=== PATIENT | male | born 1980 | race American Indian/Alaskan Native ===

== ENCOUNTER 2021-08-31 21:27 | Emergency (ER) | payer SELFPAY ==
[2021-08-31 23:26] VITALS: BP 129/90
--- NOTE | 2021-08-31 23:41 | Emergency Department Report ---
ED General Adult HPI - General Chief complaint: Dental/Oral Stated complaint: ABCESS,TOOTH ACHE Source: patient Mode of arrival: Ambulatory Limitations: No Limitations - History of Present Illness Initial comments: Patient is a 40-year-old -Tongan male with past medical history of HIV presents to the ED with complaint of acute onset persistent left mandibular gingival pain and swelling due to painful premolar and molar toothache for the last 2 days. Patient states that he has previously had similar symptoms before and decided come to the ED for medication. Patient states that he is unable to eat or chew anything because of worsening pain in the left mandibular gingiva and tooth ache. Patient denies dizziness, syncope, sore throat, chest pain or shortness of breath, change in vision, nasal and sinus congestion, fever and chills, abdominal pain, nausea and vomiting. MD Complaint: dental pain, painful swollen gums -: Sudden Location: mouth Severity scale (0 -10): 8 Quality: aching, sharp, constant Consistency: constant Improves with: none Worsens with: eating Associated Symptoms: denies other symptoms. denies: confusion, chest pain, cough, diaphoresis, fever/chills, headaches, loss of appetite, malaise, nausea/vomiting, rash, seizure, shortness of breath, syncope, weakness Treatments Prior to Arrival: none - Related Data Previous Rx's Medication Instructions Recorded Last Taken Type Clindamycin [Clindamycin CAP] 300 mg PO Q8H #30 cap 08/31/21 Unknown Rx Ketorolac [Toradol] 10 mg PO Q8H PRN #20 tab 08/31/21 Unknown Rx traMADoL [Ultram] 50 mg PO Q6HR PRN #12 tablet 08/31/21 Unknown Rx Allergies Allergy/AdvReac Type Severity Reaction Status Date / Time iodine Allergy Swelling Verified 08/31/21 23:26 ED Review of Systems ROS: Stated complaint: ABCESS,TOOTH ACHE Other details as noted in HPI Constitutional: denies: chills, fever Eyes: denies: eye pain, eye discharge, vision change ENT: dental pain (Left mandibular premolar and molar toothache), other (Swollen, painful left mandibular gingiva). denies: ear pain, throat pain Respiratory: denies: cough, shortness of breath, wheezing Cardiovascular: denies: chest pain, palpitations Endocrine: no symptoms reported Gastrointestinal: denies: abdominal pain, nausea, vomiting, diarrhea Genitourinary: denies: urgency, dysuria Musculoskeletal: denies: back pain, joint swelling, arthralgia Skin: denies: rash, lesions Neurological: denies: headache, weakness, paresthesias Psychiatric: denies: anxiety, depression Hematological/Lymphatic: denies: easy bleeding, easy bruising ED Past Medical Hx - Past Medical History Previous Medical History?: Yes Hx HIV: Yes - Surgical History Past Surgical History?: No - Medications Home Medications: Home Medications Medication Instructions Recorded Confirmed Last Taken Type Clindamycin [Clindamycin CAP] 300 mg PO Q8H #30 cap 08/31/21 Unknown Rx Ketorolac [Toradol] 10 mg PO Q8H PRN #20 tab 08/31/21 Unknown Rx traMADoL [Ultram] 50 mg PO Q6HR PRN #12 tablet 08/31/21 Unknown Rx ED Physical Exam - General Limitations: No Limitations General appearance: alert, in no apparent distress - Head Head exam: Present: atraumatic, normocephalic, normal inspection - Eye Eye exam: Present: normal appearance, PERRL, EOMI Pupils: Present: normal accommodation - ENT ENT exam: Present: mucous membranes moist, TM's normal bilaterally, normal external ear exam, other (Swollen, tender left mandibular gingiva; tender left mandibular premolar and molar teeth with multiple dental caries) - Neck Neck exam: Present: normal inspection - Respiratory Respiratory exam: Present: normal lung sounds bilaterally. Absent: respiratory distress - Cardiovascular Cardiovascular Exam: Present: regular rate, normal rhythm. Absent: systolic murmur, diastolic murmur, rubs, gallop - GI/Abdominal GI/Abdominal exam: Present: soft, normal bowel sounds - Rectal Rectal exam: Present: deferred - Extremities Exam Extremities exam: Present: normal inspection - Back Exam Back exam: Present: normal inspection - Neurological Exam Neurological exam: Present: alert, oriented X3 - Psychiatric Psychiatric exam: Present: normal affect, normal mood - Skin Skin exam: Present: warm, dry, intact, normal color. Absent: rash ED Course Vital Signs 08/31/21 23:18 Temperature 98.3 F Pulse Rate 68 Respiratory 12 Rate Blood Pressure 129/90 [Right] O2 Sat by Pulse 99 Oximetry ED Medical Decision Making - Medical Decision Making This is a 40-year-old -Tongan male with past medical history of HIV presents to the ED with complaint of acute onset persistent left mandibular gingival pain and swelling due to painful premolar and molar toothache for the last 2 days. Patient states that he has previously had similar symptoms before and decided come to the ED for medication. Patient states that he is unable to eat or chew anything because of worsening pain in the left mandibular gingiva and tooth ache. In the ED, patient is alert and oriented x3 and is not in any distress. Patient however appears to be in pain. Patient was discharged home on pain medication based on the history and physical exam findings. Patient was discharged home on antibiotics and pain medications and advised to follow-up with his dentist in 7 to 10 days for reevaluation return to the ED immediately if symptoms get worse. - Differential Diagnosis Dental abscess; gingivitis; dental caries Critical care attestation.: If time is entered above; I have spent that time in minutes in the direct care of this critically ill patient, excluding procedure time. ED Disposition Clinical Impression: Dental abscess, Acute gingivitis, Dental caries Disposition: 01 HOME / SELF CARE / HOMELESS Is pt being admited?: No Does the pt Need Aspirin: No Condition: Stable Instructions: Dental Abscess, [id number], Trench Mouth, Dental Extraction, Care After, [id number] Additional Instructions: Take medication with food, drink plenty of fluids and follow-up with your dentist in 7 to 10 days for reevaluation. Return to the ED immediately if symptoms get worse. Prescriptions: Clindamycin [Clindamycin CAP] 300 mg PO Q8H #30 cap Ketorolac [Toradol] 10 mg PO Q8H PRN #20 tab PRN Reason: Pain traMADoL [Ultram] 50 mg PO Q6HR PRN #12 tablet PRN Reason: Pain Referrals: [facility] [Outside] - 7-[address] [facility] [Outside] - 7-10 days Time of Disposition: 23:37 Print Language: MALAGASY
== END 2021-09-01 00:41 | disposition home or self-care (01) ==
LOC: ED 21:27
DX: K05.00 Acute gingivitis, plaque induced (principal); K04.7 Periapical abscess without sinus; K02.9 Dental caries, unspecified; Z88.6 Allergy status to analgesic agent; Z79.899 Other long term (current) drug therapy
CPT/HCPCS: 99282

== ENCOUNTER 2021-12-03 12:12 | Emergency (ER) | payer SELFPAY ==
[2021-12-03 12:27] VITALS: BP 140/81
[2021-12-03] MEDS ORDERED: KETOROLAC 10 MG TAB PO ONE (16:06)
[2021-12-03] MEDS ORDERED: PENICILLIN G BENZATHINE 1.2 MILLION UNIT/2 ML INJ IM ONE (16:06)
[2021-12-03] MEDS ORDERED: dexAMETHasone 4 MG/ML VIAL PO ONE (16:06)
--- NOTE | 2021-12-03 16:38 | Emergency Department Report ---
ED ENT HPI - General Chief complaint: Sore Throat Stated complaint: SWOLLEN LYMPH Time Seen by Provider: 12/03/21 15:32 Source: patient Mode of arrival: Ambulatory Limitations: No Limitations - History of Present Illness Initial comments: 41-year-old black male with no past medical history presents to the emergency department for evaluation of 1 day history of sore throat, swollen lymph nodes, headache, abdominal pain, and low-grade fever. MD complaint: sore throat, difficulty swallowing -: Sudden, days(s) (1) Location: throat Severity: severe Severity scale (0 -10): 10 Quality: aching Consistency: constant Worsens with: swallowing Associated Symptoms: fever, pain with swallowing, sore throat. denies: cough, gum swelling, toothache, tinnitus, discharge from ear, rhinorrhea - Related Data Previous Rx's Medication Instructions Recorded Last Taken Type Nystas/Diphen/Xyl Visc/Mylanta 30 ml PO QID PRN #120 ml 12/03/21 Unknown Rx [Magic Mouthwash] methylPREDNISolone [Medrol 4MG 4 mg PO DAILY #1 pack 12/03/21 Unknown Rx DOSEPAK (21 tabs)] Allergies Allergy/AdvReac Type Severity Reaction Status Date / Time iodine Allergy Intermediate Swelling Verified 12/03/21 12:25 ED Dental HPI - General Chief complaint: Sore Throat Stated complaint: SWOLLEN LYMPH Time Seen by Provider: 12/03/21 15:32 Source: patient Mode of arrival: Ambulatory Limitations: No Limitations - Related Data Previous Rx's Medication Instructions Recorded Last Taken Type Nystas/Diphen/Xyl Visc/Mylanta 30 ml PO QID PRN #120 ml 12/03/21 Unknown Rx [Magic Mouthwash] methylPREDNISolone [Medrol 4MG 4 mg PO DAILY #1 pack 12/03/21 Unknown Rx DOSEPAK (21 tabs)] Allergies Allergy/AdvReac Type Severity Reaction Status Date / Time iodine Allergy Intermediate Swelling Verified 12/03/21 12:25 ED Review of Systems ROS: Stated complaint: SWOLLEN LYMPH Other details as noted in HPI Comment: All other systems reviewed and negative Constitutional: fever. denies: chills, malaise, weakness Eyes: denies: eye pain, vision change ENT: throat pain. denies: ear pain, dental pain, congestion Respiratory: denies: cough, orthopnea, shortness of breath Cardiovascular: denies: chest pain, palpitations Gastrointestinal: abdominal pain, nausea. denies: vomiting, diarrhea, hematemesis, melena, hematochezia Genitourinary: denies: urgency, dysuria Musculoskeletal: denies: back pain Skin: denies: rash, lesions Neurological: headache. denies: weakness, numbness, paresthesias ED Past Medical Hx - Past Medical History Hx HIV: Yes - Medications Home Medications: Home Medications Medication Instructions Recorded Confirmed Last Taken Type Nystas/Diphen/Xyl Visc/Mylanta 30 ml PO QID PRN #120 ml 12/03/21 Unknown Rx [Magic Mouthwash] methylPREDNISolone [Medrol 4MG 4 mg PO DAILY #1 pack 12/03/21 Unknown Rx DOSEPAK (21 tabs)] ED Physical Exam - General Limitations: No Limitations General appearance: alert, in no apparent distress - Head Head exam: Present: atraumatic, normocephalic - Eye Eye exam: Present: normal appearance. Absent: conjunctival injection, periorbital swelling, periorbital tenderness - Expanded ENT Exam Expanded Mouth exam: Present: trismus. Absent: drooling, muffled voice, tongue elevation Throat exam: Positive: tonsillar erythema, tonsillomegaly, tonsillar exudate. Negative: R peritonsillar mass, L peritonsillar mass - Neck Neck exam: Present: normal inspection, tenderness, full ROM, lymphadenopathy (An terior cervical). Absent: meningismus, thyromegaly - Respiratory Respiratory exam: Absent: respiratory distress - Cardiovascular Cardiovascular Exam: Present: regular rate - GI/Abdominal GI/Abdominal exam: Absent: distended - Extremities Exam Extremities exam: Present: normal inspection, normal capillary refill - Back Exam Back exam: Present: normal inspection. Absent: CVA tenderness (R), CVA tendern ess (L) - Neurological Exam Neurological exam: Present: alert, oriented X3 - Psychiatric Psychiatric exam: Present: normal affect, normal mood - Skin Skin exam: Present: warm, dry, intact, normal color ED Course Vital Signs 12/03/21 12:23 Temperature 98.2 F Pulse Rate 80 Respiratory 18 Rate Blood Pressure 140/81 [Right] ED Medical Decision Making - Medical Decision Making 41-year-old black male with no past medical history presents to the emergency department for evaluation of 1 day history of sore throat, swollen lymph nodes, headache, abdominal pain, and low-grade fever. Exam consistent with exudative pharyngitis likely strep (Centor score of 4 points which is 51 to 53% probability of strep pharyngitis) with swelling to tonsils with right greater than left. Patient treated with one-time dose of Bicillin IA 1,200,000 units IM along with Decadron, Toradol, and Percocet while in the emergency department. He will be discharged home with Medrol Dosepak and Magic mouthwash to use as directed. He is advised to take medications as prescribed and follow-up with his primary care provider if no improvement or worsening symptoms. He verbalizes understanding of and agreement with plan of care. Critical care attestation.: If time is entered above; I have spent that time in minutes in the direct care of this critically ill patient, excluding procedure time. ED Disposition Clinical Impression: Exudative pharyngitis Disposition: 01 HOME / SELF CARE / HOMELESS Is pt being admited?: No Does the pt Need Aspirin: No Condition: Stable Instructions: Strep Throat, Adult, [id number] Additional Instructions: Take medications as prescribed. Follow-up with primary care provider if no improvement or worsening symptoms. Return to the emergency department as needed. Prescriptions: Nystas/Diphen/Xyl Visc/Mylanta [Magic Mouthwash] 30 ml PO QID PRN #120 ml PRN Reason: Sore Throat methylPREDNISolone [Medrol 4MG DOSEPAK (21 tabs)] 4 mg PO DAILY #1 pack Referrals: KHANH NAVARRETE MD [Primary Care Provider] - 3-5 Days Forms: Work/School Release Form(ED) Time of Disposition: 16:37
== END 2021-12-03 17:19 | disposition home or self-care (01) ==
LOC: ED 12:12
DX: J02.9 Acute pharyngitis, unspecified (principal); Z88.6 Allergy status to analgesic agent; Z79.899 Other long term (current) drug therapy
CPT/HCPCS: 96372; 99282; J0561; J1100

== ENCOUNTER 2021-12-10 15:25 | Emergency (ER) | payer SELFPAY ==
--- NOTE | 2021-12-10 16:37 | Event Note ---
ED Screening Note ED Screening Note: HERE LAST WEEK AND GIVEN 5 D ANBX FOR SORE THROAT RETURNS WITH PALP LEFT SUBMAND ABSCESS This initial assessment/diagnostic orders/clinical plan/treatment(s) is/are subject to change based on patients health status, clinical progression and re- assessment by fellow clinical providers in the ED. Further treatment and workup at subsequent clinical providers discretion. Patient/guardian urged not to elope from the ED as their condition may be serious if not clinically assessed and managed. Initial orders include: LABS RX CT
[2021-12-10] MEDS ORDERED: SODIUM CHLORIDE 0.9% 1000 ML 1,000 ML IV ONE (16:38)
[2021-12-10] MEDS ORDERED: methylPREDNISolone Sod Succinate 125 MG/2 ML INJ IV ONE (16:38)
[2021-12-10 16:39] VITALS: BP 116/81
[2021-12-10] MEDS ORDERED: cefTRIAXone/NS 1 GM/50 ML 1 GM/50 ML BAG IV ONE (16:39)
[2021-12-10 17:32] LABS: Hematocrit 45.1 % (35.5-45.6); Hemoglobin 14.7 gm/dl (11.8-15.2); Mean Corpuscular HGB Conc 33 % (32-34); Mean Corpuscular Volume 96 fl (84-94); Platelet Count 257 K/mm3 (140-440); Red Blood Count 4.69 M/mm3 (3.65-5.03); Red Cell Distribution Width 12.5 % (13.2-15.2)
[2021-12-10 17:34] LABS: BUN/Creatinine Ratio 9; Blood Urea Nitrogen 10 mg/dL (9-20); Calcium 9.5 mg/dL (8.4-10.2); Hemolysis Index 2
== END 2021-12-10 18:00 | disposition left against medical advice (07) ==
LOC: ED 15:25
DX: J02.9 Acute pharyngitis, unspecified (principal); Z53.21 Procedure and treatment not carried out due to patient leaving prior to being seen by health care provider
CPT/HCPCS: 36415; 80048; 85027